=== PATIENT | female | born 1950 | race Caucasian/White ===

== ENCOUNTER 2024-03-10 08:45 | Emergency (ER) | payer MEDICARE, SELFPAY ==
[2024-03-10 08:48] VITALS: BP 174/78; PULSE 84; RESP 18; TEMP 36.8
[2024-03-10] MEDS: Cyclobenzaprine 10 MG TAB 5 MG PO (09:25)
[2024-03-10] MEDS: Ibuprofen 400 MG TAB PO (09:25)
--- NOTE | 2024-03-10 10:00 | DI.RAD_ITS ---
Exam(s) XR SHOULDER LT COMPLETE 2+V EXAM: XR SHOULDER LT COMPLETE 2+V CLINICAL HISTORY: left shoulder pain, acute exac of chronic pain. TECHNIQUE: 2D digital imaging was performed of the left shoulder. Five images were obtained. AP, G rashey, Y-view and axillary views were obtained. COMPARISON: No exams were available for comparison FINDINGS: BONES: No acute fracture is present. No bony destructive lesion is seen. There are spurs seen extendi ng laterally off the acromion. There is a projection off of the greater tuberosity on the 1st image. This may represent a spur. Fracture cannot be entirely excluded. If there is concern for fracture is CT scan should be considered. JOINTS: No dislocation present. There are degenerative changes seen at the acromioclavicular joint an d the glenohumeral joint. SOFT TISSUE: Normal. IMPRESSION: Degenerative changes of the shoulder. DATA REPOSITORY: RADIATION DOSE DELIVERED:
--- NOTE | 2024-03-10 10:14 | W.ED.GENAD ---
Discharge Plan Disposition Patient Disposition: Home Condition: Stable Discharge Details Clinical Impression: Left shoulder tendinitis Primary Care Provider: Unknown,Unknown ED Provider: Vanessa Olivia Home Meds and New Rx's Prescriptions: New methylprednisolone [Medrol (Loi)] 4 mg tablets,dose pack See Rx Instructions .ROUTE .COMPLEX Qty: 21 0RF Rx Instructions: for 6 days cyclobenzaprine 5 mg tablet 5 mg PO TID PRNQty: 15 0RF diclofenac sodium [Aleve (diclofenac)] 1 % gel 4 g topical QID Qty: 100 0RF Rx Instructions: apply to single knee, ankle, foot; for foot includes sole/toes/top of foot Continued gabapentin 400 mg capsule 400 mg PO QDAY trazodone 150 mg tablet 150 mg PO QHS PRN esomeprazole magnesium [Nexium] 20 mg capsule,delayed release(DR/EC) 20 mg PO DAILY fluticasone propion-salmeterol [Advair HFA] 230-21 mcg/actuation HFA aerosol inhaler 2 inh inhalation BID montelukast [Singulair] 10 mg tablet 10 mg PO QHS albuterol-budesonide 90-80 mcg/actuation HFA aerosol inhaler 2 inh inhalation DAILY PRN Discharge Instructions Instructions: Tendinitis (ED) Stand Alone Forms: Physical Therapy Referral Referrals: Aakash Orellana MD [ [facility] STAFF PHYSICIAN] - 2 weeks HPI General Date/Time Provider Initiated Documentation: 03/10/24 08:49. HPI Narrative: This 74 yo female presents with left shoulder pain after sleeping and waking yesterday. Denies any specific trauma. Lives here 6 months of the year just moved back care from [place]. denies any chest pain or shortness of breath. Denies any fever or chills. States she took some vinegar last night which made her super nauseous. The vinegar apparently was a medicinal regimen for pain recommended when patient looked online. Pain is dramatically worsened with movement. Denies any tick bites. Related Data Home Medications Medication Instructions Recorded Confirmed albuterol 90 mcg-budesonide 80 2 inh inhalation DAILY PRN 03/10/24 03/10/24 mcg/actuation HFA aerosol inhaler cyclobenzaprine 5 mg tablet 5 mg PO TID PRN #15 tabs 03/10/24 diclofenac sodium 1 % topical gel 4 g topical QID #100 grams 03/10/24 (Aleve (diclofenac)) esomeprazole magnesium 20 mg 20 mg PO DAILY 03/10/24 03/10/24 capsule,delayed release (Nexium) fluticasone propionate 230 2 inh inhalation BID 03/10/24 03/10/24 mcg-salmeterol 21 mcg/actuation HFA inhaler (Advair HFA) gabapentin 400 mg capsule 400 mg PO QDAY 03/10/24 03/10/24 methylprednisolone 4 mg tablets in See Rx Instructions PO .COMPLEX 03/10/24 a dose pack (Medrol (Loi)) #21 dose pk montelukast 10 mg tablet 10 mg PO QHS 03/10/24 03/10/24 (Singulair) trazodone 150 mg tablet 150 mg PO QHS PRN 03/10/24 03/10/24 Previous Rx's Medication Instructions Recorded cyclobenzaprine 5 mg tablet 5 mg PO TID PRN #15 tabs 03/10/24 diclofenac sodium 1 % topical gel 4 g topical QID #100 grams 03/10/24 (Aleve (diclofenac)) methylprednisolone 4 mg tablets in See Rx Instructions PO .COMPLEX 03/10/24 a dose pack (Medrol (Loi)) #21 dose pk General Stated Complaint: Orthopedic CATA: 4 Exam Narrative Exam Narrative: Alert and oriented 74-year-old female no midline neck tenderness, lungs clear to auscultation, cardiac rate rhythm regular, distal pulses intact, reproducible tenderness to left shoulder without any visible evidence of infection, very limited range of motion secondary to pain hand grasp intact Course Vital Signs Vital signs: Vital Signs Temperature 36.8 C 03/10/24 08:48 Pulse 84 03/10/24 08:48 Respiratory Rate 18 03/10/24 08:48 Blood Pressure 174/78 H 03/10/24 08:48 Temperature 36.8 C 03/10/24 08:48 Temperature Source Tympanic 03/10/24 08:48 Pulse 84 03/10/24 08:48 Respiratory Rate 18 03/10/24 08:48 Respiratory Effort Normal 03/10/24 09:32 Blood Pressure 174/78 H 03/10/24 08:48 Blood Pressure Position Sitting 03/10/24 08:48 Oxygen Delivery Method Room Air 03/10/24 08:48 Oxygen Flow Rate 0 03/10/24 08:48 Pain Level 9 03/10/24 09:32 Medical Decision Making 74-year-old female presenting with left shoulder pain. X-ray was ordered for additional evaluation which shows evidence of degenerative changes and arthritis per radiology interpretation and my review. Patient was given Flexeril and Motrin which she tolerated well. She states her pain is minimally improved. There is no evidence of secondary infection and low suspicion for gout clinically. Patient was encouraged to establish care with a primary care physician and referred to orthopedics in the outpatient setting. She was given a sling and we discussed risk of frozen shoulder associated with this. She is encouraged to continue to range her shoulder despite the discomfort and sling. She also be referred to physical therapy. Return precautions reviewed and patient expressed understanding Neurovascularly intact at time of assessment and discharge Quality:SDOH Health Related Social Needs: No Data to Display PFSH All Active Problems (Updated 03/10/24 @ 10:15 by ALISIA Peace) Left shoulder tendinitis (Acute) Social History Smoking/Tobacco Use Status: Current every day Smoking risk assessment performed?: Yes Alcohol Intake: never Drug use: Never Substance use type: does not use Housing: apartment
--- NOTE | 2024-03-10 10:19 | NUR.NOTE ---
Referral faxed to [facility], Alia Walters on for telephone call: needs PCP, establish care, routine follow up. Nursing Note:
== END 2024-03-10 10:56 | disposition home or self-care (01) ==
PROVIDERS: Emergency Provider Physician Assistant
DX: M75.82 Other shoulder lesions, left shoulder (principal)
CPT/HCPCS: 99283; 73030

== ENCOUNTER 2024-05-02 02:08 | Emergency (ER) | payer MEDICARE, SELFPAY ==
[2024-05-02 02:10] VITALS: BP 166/97; PULSE 91; RESP 18; TEMP 36.9; O2SAT 96
--- NOTE | 2024-05-02 02:31 | W.ED.GENAD ---
Discharge Plan Disposition Patient Disposition: Home Condition: Good Discharge Details Clinical Impression: Flea bite of multiple sites Primary Care Provider: Unknown,Unknown ED Provider: Jessy Maldonado Home Meds and New Rx's Prescriptions: Continued gabapentin 400 mg capsule 400 mg PO QDAY trazodone 150 mg tablet 150 mg PO QHS PRN esomeprazole magnesium [Nexium] 20 mg capsule,delayed release(DR/EC) 20 mg PO DAILY fluticasone propion-salmeterol [Advair HFA] 230-21 mcg/actuation HFA aerosol inhaler 2 inh inhalation BID montelukast [Singulair] 10 mg tablet 10 mg PO QHS albuterol-budesonide 90-80 mcg/actuation HFA aerosol inhaler 2 inh inhalation DAILY PRN cyclobenzaprine 5 mg tablet 5 mg PO TID PRNQty: 15 0RF Discontinued diclofenac sodium [Aleve (diclofenac)] 1 % gel 4 g topical QID Qty: 100 0RF Rx Instructions: apply to single knee, ankle, foot; for foot includes sole/toes/top of foot Discharge Instructions Instructions: Insect Bites and Stings ED Additional Instructions: Benadryl and pepcid over the counter for itching; follow the directions on the bottle. You can also use a steroid cream like hydrocortisone. Take all of your medications as prescribed. Check your blood sugar at home as recommended by your primary care doctor. Establish care with a local primary care physician since you are here for about 5 months out of the year.. Return to the emergency department for new or worsening symptoms including difficultly breathing, spreading redness from yoru bites, thick green or white discharge from the ibtes, or if you have any other concerns. Discharge Data Discharge Date/Time-TO BE ENTERED AT DEPARTURE: 05/02/24 02:53 HPI General Mode of arrival: ambulatory. Date/Time Provider Initiated Documentation: 05/02/24 02:20. Limitations to Documentation: no limitations. Information obtained by: patient and family. HPI Narrative: 74yo F with hx T2DM, asthma, presenting for pruritic rash. For two weeks has been finding itchy spots on her arms, has fleas at home. Plan to flea-bomb house today. Last night itching became intolerable and she was unable to sleep. Worst on arms and scalp. No discharge from lesions. Has tried Benadryl with minimal improvement. She is otherwise in her usual state of health with no fevers, chills, rash, nausea, vomiting, abdominal pain, new numbness, tingling, weakness, chest pain, shortness of breath, or other concerns. Related Data Home Medications Medication Instructions Recorded Confirmed albuterol 90 mcg-budesonide 80 2 inh inhalation DAILY PRN 03/10/24 05/02/24 mcg/actuation HFA aerosol inhaler cyclobenzaprine 5 mg tablet 5 mg PO TID PRN #15 tabs 03/10/24 05/02/24 esomeprazole magnesium 20 mg 20 mg PO DAILY 03/10/24 05/02/24 capsule,delayed release (Nexium) fluticasone propionate 230 2 inh inhalation BID 03/10/24 05/02/24 mcg-salmeterol 21 mcg/actuation HFA inhaler (Advair HFA) gabapentin 400 mg capsule 400 mg PO QDAY 03/10/24 05/02/24 montelukast 10 mg tablet 10 mg PO QHS 03/10/24 05/02/24 (Singulair) trazodone 150 mg tablet 150 mg PO QHS PRN 03/10/24 05/02/24 Previous Rx's Medication Instructions Recorded cyclobenzaprine 5 mg tablet 5 mg PO TID PRN #15 tabs 03/10/24 General Stated Complaint: RashLesion CATA: 4 Review of Systems Narrative: see HPI Exam Narrative Exam Narrative: General: Alert, well appearing, well nourished, in no acute distress. Head: Normocephalic, atraumatic Neck: Trachea midline, ?Neck supple. Cardiac: ?RRR, no murmurs appreciated Resp: No respiratory distress. CTAB. Abd: ?Soft, non-distended, nontender : ?No suprapubic tenderness. Extremities: ?No deformities.? No peripheral edema. Neurologic: GCS 15. ? Moves all extremities freely against gravity Skin: Scattered erythematous lesions with central scabbing most abundant on bilateral upper extremities, also scattered on back of neck, scalp, and abdomen. Course Vital Signs Vital signs: Vital Signs Temperature 36.9 C 05/02/24 02:10 Pulse 91 H 05/02/24 02:10 Respiratory Rate 18 05/02/24 02:10 Blood Pressure 166/97 H 05/02/24 02:10 Pulse Oximetry 96 05/02/24 02:10 Temperature 36.9 C 05/02/24 02:10 Temperature Source Skin 05/02/24 02:10 Pulse 91 H 05/02/24 02:10 Respiratory Rate 18 05/02/24 02:10 Respiratory Effort Normal, Non-Labored 05/02/24 02:17 Blood Pressure 166/97 H 05/02/24 02:10 Blood Pressure Position Supine 05/02/24 02:10 Pulse Oximetry 96 05/02/24 02:10 Oxygen Delivery Method Room Air 05/02/24 02:10 Oxygen Flow Rate 0 05/02/24 02:10 Pain Level 10 05/02/24 02:10 Medical Decision Making 74yo F with hx T2DM, asthma, presenting for pruritic rash. For two weeks has been finding itchy spots on her arms, has fleas at home. Otherwise well. Hypertensive on arrival, vital signs otherwise reassuring. On exam she has copious erythematous pruritic lesions consistent with insect bites. No signs of infection. Not septic. Not anaphylaxis. No consistent with infection. Would not get labs. Will treat symptoms with benadyrl, pepcid, steroid cream, and single dose of 10mg IM decadron. She reports she lives here 5 months out of the year; her PCP is in [place]. Advised her to establish a relationship with a local PCP. Discharged home; discharge instructions and return precautions were reviewed with patient who verbalized understanding. All questions were answered and she is in full agreement with the plan. Quality:SDOH Health Related Social Needs: No Data to Display PFSH All Active Problems (Updated 05/02/24 @ 02:37 by Jessy Maldonado MD) Flea bite of multiple sites (Acute) Social History Smoking/Tobacco Use Status: Current every day Smoking risk assessment performed?: Yes Alcohol Intake: never Drug use: Never Substance use type: does not use Housing: apartment Do you feel safe at home: Yes Do you feel safe in your relationship?: Yes
[2024-05-02] MEDS: diphenhydrAMINE 25 MG CAP 50 MG PO (02:38)
[2024-05-02] MEDS: Dexamethasone 10 MG/ML VIAL IM (02:38)
[2024-05-02] MEDS: Famotidine 20 MG TAB 40 MG PO (02:38)
== END 2024-05-02 02:53 | disposition home or self-care (01) ==
PROVIDERS: Emergency Provider Student in an Organized Health Care Education/Training Program
DX: S40.861A Insect bite (nonvenomous) of right upper arm, initial encounter (principal); S40.862A Insect bite (nonvenomous) of left upper arm, initial encounter; W57.XXXA Bitten or stung by nonvenomous insect and other nonvenomous arthropods, initial encounter
CPT/HCPCS: 96372; 99284; J1100